=== PATIENT | male | born 2000 | race African-American/Black ===

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

== ENCOUNTER 2022-02-02 21:50 | Emergency (ER) | payer MEDICAID, SELFPAY ==
[2022-02-02 21:51] VITALS: BP 150/111; PULSE 114; RESP 18; TEMP 36.1; O2SAT 100; BMI 40.6
[2022-02-02 21:56] VITALS: BP 150/111; PULSE 101; RESP 18; TEMP 36.6; O2SAT 99
--- NOTE | 2022-02-02 22:31 | EX.ED.DYSGE1 ---
HPI History of Present Illness Chief Complaint: Abscess Narrative Narrative: Patient with past medical history of hypertension, presents with pain and swelling and bug bite of his right lower extremity. He states over the last 3 to 4 days there is a small dot on the lateral aspect of his right lower leg towards his ankle. It has gotten larger and more painful along with itchy and red. He denies any drainage of pus from the wound. He denies any recent trauma. No fevers or chills. No nausea or vomiting. He denies history of diabetes. He presents for evaluation of this area that is hardened and reddened on his right lower extremity. No recent hot tub or pool use. PFSH PFSH Home Medications metformin 500 mg PO BID 10/30/17 [History Last Taken Unknown] sulfamethoxazole-trimethoprim [Bactrim DS] 1 tab PO BID #20 tab 02/02/22 [Rx Last Taken Unknown] Allergy/AdvReac Type Severity Reaction Status Date / Time No Known Allergies Allergy Verified 02/02/22 21:52 Social History Smoking Status: Never smoker ROS ROS ED ROS Narrative Constitutional: No fever, no chills. HEENT: No sore throat. No neck pain. No loss of vision. No rhinorrhea. Cardiovascular: No chest pain. No palpitations. No pedal edema. Respiratory: No cough, no shortness of breath. Abdominal: No abdominal pain. No nausea. No vomiting. Genitourinary: No dysuria. No hematuria. Musculoskeletal: No myalgias. No arthralgias. Neurologic: No headaches. No dizziness. No lightheadedness. Skin: No rash. Positive lesion right lateral lower extremity with redness and tenderness. No drainage of pus. Psychiatric: No depression. No anxiety. EXAM Physical Exam Narrative Exam Narrative: Afebrile. Vital signs noted. Nontoxic-appearing. HEENT: Normocephalic. Atraumatic. PERRL, EOMI. Neck soft and supple. No point tenderness or step off. Cardiovascular: Regular rate and rhythm. No murmurs, rubs, or gallops appreciated. Respiratory: No tachypnea. Lungs clear to auscultation bilaterally. Gastrointestinal: Abdomen soft, nontender, with normoactive bowel sounds. No rebound or guarding. Neurological: Awake. Alert. Nonfocal, nonlateralizing. Skin: No rash. Positive area of induration with minute pustule right lateral lower extremity. Full range of motion of ankle. No noted swelling. No noted fluctuance. Musculoskeletal: No pedal edema. Full range of motion extremities. Const Vital Signs: 02/02/22 21:51 02/02/22 21:56 Temperature 97 F L 97.9 F Temperature Source Temporal Temporal Pulse Rate 114 H 101 H Respiratory Rate 18 18 Blood Pressure 150/111 H 150/111 H Blood Pressure Mean 124 124 Pulse Ox 100 99 Oxygen Delivery Method Room Air MDM MDM MDM Narrative Medical decision making narrative: I do not feel that this is amenable to incision and drainage. I feel it is more of an indurated abscess with surrounding cellulitis. Bedside ultrasound was performed and showed no evidence of loculation of fluid. Patient will be placed on Bactrim for the next 10 days. He was given his first dose of antibiotics here. He will take [id number] medications as needed and apply warm compresses to the area. Return instructions to the emergency department were reviewed. He is to follow-up with his primary care physician. Additionally, he had an elevated blood pressure reading and he has hypertension listed as a problem. He was told to continue to monitor his blood pressure and follow-up with his primary care physician as soon as possible. I feel he can be discharged safely home with follow-up. Disposition is discharged home in stable condition. Discharge Plan Triage Chief Complaint: Abscess ED Provider: Max Alfaro Dx/Rx/DC Orders Clinical Impression: Cellulitis and abscess of right leg, Elevated blood pressure reading with diagnosis of hypertension Instructions: ED Cellulitis, ED Hypertension, Established Prescriptions: New sulfamethoxazole-trimethoprim [Bactrim DS] 800-160 mg tablet 1 tab PO BID Qty: 20 RF: 0 No Action metformin 500 MG tablet 500 mg PO BID RF: 0 Primary Care Provider: Nikolay Hurst Referrals: Nikolay Hurst MD [Primary Care Provider] - 2 Days for wound check Disposition Disposition: Home, Self Care
[2022-02-02] MEDS: Smz/Tmp Ds Tablet 1 TABLET PO (22:32)
[2022-02-02 22:42] VITALS: BP 132/68; PULSE 76; RESP 18
== END 2022-02-02 22:45 | disposition home or self-care (01) ==
PROVIDERS: Emergency Provider Emergency Medicine; PCP Family Medicine; Visit Provider Emergency Medicine
DX: L03.115 Cellulitis of right lower limb (principal); I10 Essential (primary) hypertension; L02.415 Cutaneous abscess of right lower limb
CPT/HCPCS: 99283

== ENCOUNTER 2022-02-05 16:11 | Emergency (ER) | payer MEDICAID, SELFPAY ==
[2022-02-05 16:12] VITALS: BP 124/84; PULSE 104; RESP 16; TEMP 37; O2SAT 97; BMI 42.2
--- NOTE | 2022-02-05 16:26 | EX.ED.DYSGE1 ---
HPI History of Present Illness Chief Complaint: Cellulitis Informant: patient Narrative Narrative: Patient states that he had a small red dot on his right leg with surrounding erythema that started Monday. He was seen on Monday. He states it was smaller. No drainage was done because it was not really enlarged. He was started on Bactrim which he did fill and is taking. He has no systemic symptoms such as fevers chills nausea and vomiting. However, the local area has gotten more swollen. The erythema is not really spreading though. He was able to drain material out of it by squeezing twice today. He just wants to make sure its okay. He did have on his med list being on metformin but denies being diabetic. I will check a BG T just to be sure. PFSH PFSH Medical History no medical history Home Medications sulfamethoxazole-trimethoprim [Bactrim DS] 1 tab PO BID #20 tab 02/02/22 [Rx Last Taken Unknown] cephalexin 500 mg PO Q6 #40 cap 02/05/22 [Rx Last Taken Unknown] Allergy/AdvReac Type Severity Reaction Status Date / Time No Known Allergies Allergy Verified 02/05/22 16:11 Social History Smoking Status: Never smoker ROS ROS ED Constitutional Constitutional ED: Denies chills or fever(s) Eyes Eyes: Denies blurry vision Respiratory/Chest Respiratory/Chest: Denies cough or dyspnea Gastrointestinal Gastrointestinal: Denies nausea or vomiting Musculoskeletal Musculoskeletal: Reports other Details: Sore red area lateral aspect of right lower extremity. Integumentary Reports abscess and rash Neurologic Neurologic: Denies paresthesias or weakness Endocrine Endocrinology: Denies polydipsia or polyuria Allergic/Immunologic Allergic/Immunologic ED: Denies urticaria EXAM Physical Exam Const Vital Signs: 02/05/22 16:12 Temperature 98.6 F Temperature Source Temporal Pulse Rate 104 H Respiratory Rate 16 Blood Pressure 124/84 H Blood Pressure Mean 97 Pulse Ox 97 Oxygen Delivery Method Room Air Positive well nourished and well developed General Appearance ED: well developed HEENT Reports moist mucous membranes Eyes General Eye ED: Negative for pale conjunctiva or scleral icterus Resp normal respiratory effort Extremity Extremity Narrative: See below. Neuro Sensorium / Orientation: alert Skin Skin Narrative: There is an inflamed area about a centimeter around that look like he had recent drainage and opening done on the lateral aspect of the right lower extremity. There is some overall erythema about 10 cm in circumference around this. No streaking up the leg. Calf is nontender. No diffuse edema or swelling. No distended veins. MDM MDM MDM Narrative Medical decision making narrative: Procedure: Incision and drainage: I discussed risks benefits indications with the patient. I also discussed that we may not get a lot of purulence out because he just got drainage twice this morning. We proceeded. He was anesthetized around the area with about 2-1/2 cc of 1% lidocaine without epinephrine. Good anesthesia was achieved. I made incision right through the area that was already opened. It was very palpable that we opened up into a pocket. But there was minimal purulence that came out. I did used forceps to open up any loculations but none were found. I was able to put gauze into the wound. We were clearly within the pocket by palpation. He tolerated this very well. I discussed care of this. I discussed how to care for this with dressing changes and the wick/packing. We also discussed pulling the packing in 3 days. We did do a BG T that was 105. Patient states he had been diagnosed with diabetes when he was young and was on tablets for a while but has not been on them for many years. We discussed continued weight loss healthy eating. But I do not think he needs treatment at this time as his sugar is doing well. I think we can try him on further antibiotic therapy. He is only just now approaching 3 days of antibiotics. We will add Keflex. If this develops worsening, fevers, swelling or other changes he may need to come in for admission but I think it still reasonable to continue to try him as an outpatient. Lab Data Attestation: I reviewed the patient's lab results. Labs: Laboratory Results - last 24 hr 02/05/22 16:33 POC Glucose 105 Discharge Plan Triage Chief Complaint: Cellulitis ED Provider: Roddy Rasheed Dx/Rx/DC Orders Clinical Impression: Cellulitis and abscess of right leg, Encounter for incision and drainage procedure Instructions: ED Abscess Incision And Drainage Prescriptions: New cephalexin [cephalexin] 500 MG capsule 500 mg PO Q6 Qty: 40 RF: 0 No Action sulfamethoxazole-trimethoprim [Bactrim DS] 800-160 mg tablet 1 tab PO BID Qty: 20 RF: 0 Primary Care Provider: Nikolay Hurst Referrals: Nikolay Hurst MD [Primary Care Provider] - 2 Days for wound check Activity Restrictions/Additional Instructions: Continue your original antibiotics and add the new antibiotics. You should be taking both of them. Disposition Disposition: Home, Self Care
[2022-02-05 16:41] LABS: Bedside Glucose 105 mg/dL (74-106)
[2022-02-05] MEDS: Cephalexin 250 MG Capsule 500 MG PO (17:06)
== END 2022-02-05 17:14 | disposition home or self-care (01) ==
PROVIDERS: Emergency Provider Emergency Medicine; PCP Family Medicine; Visit Provider Emergency Medicine
DX: L03.115 Cellulitis of right lower limb (principal); L02.415 Cutaneous abscess of right lower limb
CPT/HCPCS: 10060; 82962; 99283

== ENCOUNTER 2024-06-26 07:53 | Outpatient (RCR) | payer BC, SELFPAY | END 2024-06-27 23:59 | LOC: NS 07:53 | PROVIDERS: PCP Family Medicine; Referring Provider Nurse Practitioner Family; Visit Provider Nurse Practitioner Family | DX: Z71.3 Dietary counseling and surveillance (principal); E66.01 Morbid (severe) obesity due to excess calories; Z68.41 Body mass index [BMI] 40.0-44.9, adult | CPT/HCPCS: 97802 ==